=== PATIENT | female | born 1950 | race Caucasian/White ===

== ENCOUNTER → 2018-02-01 | Outpatient (CLI) | payer MEDICARE ==
--- NOTE | 2018-02-07 07:57 | Diagnostic Imaging Report ---
PROCEDURE: BONE DXA DUAL ENERGY COMPARISON:None. INDICATIONS:MENOPAUSE FINDINGS:Evaluation of the left hip and lumbar spine was performed utilizing DEXA Hologic bone densitometer. The study is technically adequate. The patient does not have any known previous non-traumatic fractures or other risk factors. Left hip total bone mineral density: 0.693 gm/cm2, T-score is -2.0, Z-score is -0.6. Lumbar spine total bone mineral density: 0.767 gm/cm2, T-score is -2.5, Z-score is -0.6. Impression: 1. Decreased bone mineral density of the left hip classified as osteopenia, fracture risk is increased. 2. Decreased bone mineral density of the lumbar spine classified as osteoporosis, fracture risk is increased. 3. Since previous study dated 02/10/2017 there is a decrease in the bone mineral density of -1.5%. The patient's fracture risk is compared to an age-matched control. Medical evaluation for secondary causes of low bone mineral density may be appropriate. Correlate clinically for the necessity and timing of the next bone mineral density study. National [employer] recommendations: Initial therapy to reduce fracture risk in postmenopausal women with -BMD t-scores below -2.0 by central DXA with no risk factors -BMD t-scores below -1.5 by central CXA with one or more risk factors (first deg relative with hip fracture, prior personal fracture, low body weight, smoking) -A prior vertebral or hip fracture AACE n(Clinical Endocrinology) recommends treating the following: Postmenopausal women who have osteoporosis as diagnosed by fragility fractures or t-score -2.5 or below. Postmenopausal women who have risk factors (including hx of hip fracture, low body weight, smoking, risk of falling, high bone turnover, advancing age) and borderline low BMD T-scores of -1.5 or below Adequate intake of calcium (at least 1200mg/day) and vitamin D (400-800IU/day). Regular weight bearing and muscle-strengthening exercises Avoid smoking and excessive alcohol Best Farley D.O. Dictated by: Best Farley D.O. on 02/07/2018 at 8:06 Electronically approved by: Best Farley D.O. on 02/07/2018 at 8:06
== END ==
LOC: MAMMO 09:28
PROVIDERS: ATTEND Internal Medicine
DX: Z78.0 Asymptomatic menopausal state (principal)
CPT/HCPCS: 77080

== ENCOUNTER → 2018-06-16 | Outpatient (CLI) | payer MEDICARE ==
--- NOTE | 2018-06-19 08:23 | Diagnostic Imaging Report ---
#[id number] - USBRECOMRT ULTRASOUND OF THE RIGHT BREAST : 06/16/2018 No prior exams were available for comparison. Color flow and real-time ultrasound were performed on the entire right breast with scanning in all four quadrants and the axillary region. There are bilateral implants as the patient has had a total mastectomy and breast reconstruction. No cystic or solid masses are seen. Implant appears intact. IMPRESSION: BENIGN There is no sonographic evidence of malignancy. A 1 year screening study is recommended. Best Farley Jr., D.O. cw/:06/16/2018 12:03:18 Log Grader: KEELEY TREVINO [facility], [facility] letter sent: Normal Exam Ultrasound BI-RADS: 2 Benign
--- NOTE | 2018-06-19 08:23 | Diagnostic Imaging Report ---
#[id number] - USBRECOMLT ULTRASOUND OF THE LEFT BREAST : 06/16/2018 No prior exams were available for comparison. Color flow and real-time ultrasound were performed on the entire left breast with scanning in all four quadrants and the axilla. There are bilateral implants as the patient has had a total mastectomy and breast reconstruction. No cystic or solid masses are seen. Implant appears intact. IMPRESSION: BENIGN There is no sonographic evidence of malignancy. A 1 year screening study is recommended. Best Farley Jr., D.O. cw/:06/16/2018 12:00:43 Retail And Promotions Coordinator: KEELEY TREVINO [facility], [facility] letter sent: Normal Exam Ultrasound BI-RADS: 2 Benign
== END ==
LOC: US 09:52
PROVIDERS: ATTEND Internal Medicine
DX: Z85.3 Personal history of malignant neoplasm of breast (principal); Z13.820 Encounter for screening for osteoporosis; Z78.0 Asymptomatic menopausal state

== ENCOUNTER → 2021-04-14 | Outpatient (CLI) | payer MEDICARE | LOC: MAMMO 10:07 | PROVIDERS: ATTEND Internal Medicine | DX: M81.8 Other osteoporosis without current pathological fracture (principal) | CPT/HCPCS: 77080 ==

== ENCOUNTER → 2021-04-16 | Outpatient (CLI) | payer MEDICARE | LOC: US 10:24 | PROVIDERS: ATTEND Internal Medicine | DX: Z85.3 Personal history of malignant neoplasm of breast (principal) ==

== ENCOUNTER → 2022-06-01 | Outpatient (CLI) | payer MEDICARE | LOC: MAMMO 10:29 | PROVIDERS: ATTEND Internal Medicine | DX: Z12.31 Encounter for screening mammogram for malignant neoplasm of breast (principal) ==

== ENCOUNTER → 2022-07-08 | Outpatient (CLI) | payer MEDICARE | LOC: US 08:30 | PROVIDERS: ATTEND Internal Medicine | DX: Z85.3 Personal history of malignant neoplasm of breast (principal) ==